=== PATIENT | male | born 1965 | race Asian ===

== ENCOUNTER 2018-11-05 16:10 | Emergency (ER) | payer OTHER ==
[~2018-11-05] VITALS: Ht 170 cm; Wt 56.8 kg
[2018-11-05 16:18] VITALS: TEMP 98
[2018-11-05 17:08] LABS: TROPONIN-I < 0.012 ng/mL (0.000-0.035)
[2018-11-05 17:20] LABS: BASO % 0.4 % (0.0-2.0); EOS # 0.6 (0.0-0.7); EOS % 8.1 % (0-4.0); GRAN # 3.7 (1.4-6.5); GRAN % 52.1 % (42.2-75.2); HEMOGLOBIN 11.6 g/dl (13.5-18.0); LYMPH # 1.9 (1.2-3.4); LYMPH % 26.2 % (20.0-51.0); MEAN CELL VOLUME 92 fl (80.0-100.0); MEAN CORPUSCULAR HEMOGLOBIN 31 pg (27.0-31.0); MEAN CORPUSCULAR HGB CONC 34 g/dl (33.0-37.0); MONO # 0.9 (0.1-0.6); MONO % 12.8 % (1.7-9.3); PLATELET COUNT 362 K/mm3 (130-400); RED BLOOD COUNT 3.76 M/mm3 (4.20-5.60); REDCELL DISTRIBUTION WIDTH-CV 13.9 % (11.5-14.5)
[2018-11-05 17:25] LABS: HEMATOCRIT 34.4 % (42.0-52.0)
[2018-11-05 17:28] LABS: ALBUMIN 3.6 gm/dL (3.5-5.0); BILIRUBIN,TOTAL 0.3 mg/dL (0.0-1.0); CALCIUM 8.9 mg/dL (8.4-10.2); CREATININE, serum 0.56 (0.66-1.25); TOTAL PROTEIN 6.9 gm/dL (6.4-8.2)
[2018-11-05] MEDS ORDERED: LEVAQUIN 5500 MG/TA1 PO (19:14)
[2018-11-05 19:30] VITALS: BP 100/75; PULSE 62
== END 2018-11-05 19:30 | disposition home or self-care (01) ==
LOC: COL.ER 16:10
PROVIDERS: Emergency Medicine
DX: C34.90 Malignant neoplasm of unspecified part of unspecified bronchus or lung (principal); J91.8 Pleural effusion in other conditions classified elsewhere; Z87.891 Personal history of nicotine dependence
CPT/HCPCS: J7030; Q9967